=== PATIENT | female | born 1975 | race Caucasian/White ===

== ENCOUNTER 2023-01-13 15:53 | Emergency (ER) | payer BC, OTHER ==
[2023-01-13] MEDS ORDERED: Lidocaine 1% w/Epinephrine 1:100K 20 ML VIAL ONE (16:34)
[2023-01-13] MEDS ORDERED: Lidocaine 2% Viscous 100 ML BOTTLE ONE (16:44)
[2023-01-13] MEDS ORDERED: Mineral Oil ENEMA ONE (17:18)
== END 2023-01-13 17:40 | disposition home or self-care (01) ==
LOC: MADERS 15:53
DX: K64.5 Perianal venous thrombosis (principal); K59.00 Constipation, unspecified
CPT/HCPCS: 46083

== ENCOUNTER 2023-09-17 17:52 | Emergency (ER) | payer BC ==
[2023-09-17] MEDS ORDERED: Famotidine/PF 20 mg/2ml Vial ONE (18:02)
[2023-09-17] MEDS ORDERED: Mag-Al 1200 mg/1200 mg/30 ML UDCUP ONE (18:03)
[2023-09-17] MEDS ORDERED: Ondansetron PF 4 MG/2 ML Vial ONE (18:03)
[2023-09-17] MEDS ORDERED: Lidocaine Viscous Sol 2% 15 ml UD Cup ONE (18:03)
[2023-09-17 18:17] LABS: #Basophils 0.1 thou/uL (0.0-0.2); #Eosinphils 0.1 thou/uL (0.0-0.7); #Lymphocytes 2.6 thou/uL (1.20-3.40); #Monocytes 0.4 thou/uL (0.11-0.59); #Neutrophils 3.7 thou/uL (1.40-6.50); %Basophils 1.5 % (0.0-1.0); %Eosinophils 1.3 % (0.0-10.0); %Lymphocytes 37.7 % (21.0-51.0); %Monocytes 6.3 % (0.0-10.0); %Neutrophils 53.2 % (42.0-75.0); Hematocrit 34.3 % (36.0-47.0); Mean Corpuscular HGB CONC 32.1 g/dL (32.0-36.0); Mean Corpuscular Hemoglobin 28.4 pg (27.0-31.0); Mean Corpuscular Volume 88.3 fl (78.0-98.0); Mean Platelet Volume 6.2 fL (7.4-10.4); Platelet Count 286 10x3/uL (130-400); RBC Distribution Width 11.8 % (11.5-14.5); Red Blood Cell (RBC) Count 3.88 mill/uL (4.20-5.40); White Blood Cell (WBC) Count 6.9 10x3/uL (4.8-10.8)
[2023-09-17 18:26] LABS: PTT 30.5 sec (22.9-36.1)
[2023-09-17 18:34] LABS: ALT (SGPT) 19 U/L (8-55); AST (SGOT) 23 U/L (5-34); Albumin 4.6 g/dL (3.5-5.0); Alkaline Phosphatase 40 U/L (40-110); Anion Gap 17 mmol/L (10-20); BUN (Urea Nitrogen) 24 mg/dL (7.0-18.7); Bilirubin, Total 0.3 mg/dL (0.2-1.2); Calc. Creatinine Clearance 0 mL/min (70-130); Calcium 9.5 mg/dL (7.8-10.44); Carbon Dioxide 21 mmol/L (22-29); Chloride 106 mmol/L (98-107); Estimated GFR 66; Globulin 2.7 g/dL (2.4-3.5); Glucose 116 mg/dL (70-105); Lipase 46 U/L (8-78); Potassium 3.5 mmol/L (3.5-5.1); Protein, Total 7.3 g/dL (6.0-8.3); Sodium 140 mmol/L (136-145)
[2023-09-17 18:35] LABS: Troponin I 0.014 ng/mL (< 0.028)
[2023-09-17] MEDS ORDERED: Ketorolac Tromethamine 30 MG (1 mL) VIAL ONE (18:44)
== END 2023-09-17 19:08 | disposition home or self-care (01) ==
LOC: MADERS 17:52
DX: K29.70 Gastritis, unspecified, without bleeding (principal); K21.9 Gastro-esophageal reflux disease without esophagitis
CPT/HCPCS: 71045; 80053; 83690; 84484; 85025; 85610; 85730; 93005; 96374; 96375; J1885; J2405; J3490